=== PATIENT | male | born 1930 | race Caucasian/White ===

== ENCOUNTER 2017-02-20 09:17 | Observation (INO) | payer MEDICARE ==
[~2017-02-20] VITALS: Ht 175.3 cm; Wt 80.3 kg
[~2017-02-20 09:17] MED LIST: ACTONEL35 MG PO; ACYCLOVIR PO; ALENDRONATE SOD70 MG PO; ASPIRIN EC81 MG PO; COREG CR10 MG PO; DEMADEX20 MG PO; FINASTERIDE5 MG PO; FLOMAX0.4 MG PO; GLUCOSAMINE &1 EAC1 PO; LIPITOR40 MG PO; LYRICA50 MG PO; NEXIUM40 MG PO; PLAVIX75 MG PO; [UNRECOGNIZED DRUG - OTHER] PO
[2017-02-20] MEDS ORDERED: MULTI-VITAMIN1 EACH PO (09:44)
[2017-02-20] MEDS ORDERED: MIDODRINE HCL2.5 MG PO (09:44)
[2017-02-20] MEDS ORDERED: OCUVITE SOFTGE1 EACH PO (09:44)
[2017-02-20] MEDS ORDERED: PROPAFENONE HC325 MG PO (09:44)
[2017-02-20] MEDS ORDERED: VALACYCLOVIR500 MG PO (09:44)
[2017-02-20] MEDS ORDERED: PRAVASTATIN SOD40 MG PO (09:44)
[2017-02-20] MEDS ORDERED: HYDROMORPHONE 1MG/1ML INJ IV PRN (10:00)
[2017-02-20] MEDS ORDERED: ONDANSETRON HCL INJ 2 MG/ML VIAL IV PRN (10:00)
[2017-02-20] MEDS: SODIUM CHLORIDE 0.9% 1000ML 1,000 ML IV SCH ×3 (10:26→20:35)
[2017-02-20 10:30] LABS: BASOPHILS % 0.5 % (0.0-1.0); EOSINOPHILS # (AUTO) 0.1 (0.0-0.4); EOSINOPHILS % 1.6 % (0.0-6.0); HEMATOCRIT 34.4 % (38.2-49.6); HEMOGLOBIN 11.6 g/dL (14.0-18.0); LYMPHOCYTES # (AUTO) 0.7 (1.0-3.2); MEAN CORPUSCULAR HEMOGLOBIN 33.1 pg (28-32); MEAN CORPUSCULAR HGB CONC 33.7 g/dL (31-35); MEAN CORPUSCULAR VOLUME 98.3 fL (81-99); MONOCYTES # (AUTO) 0.6 (0.2-0.8); NEUTROPHILS # (AUTO) 2.3 (2.1-6.9); NEUTROPHILS % 62.8 % (38.7-80.0); PLATELET COUNT 106 x10e3/uL (140-360); RED CELL DISTRIBUTION WIDTH 14.3 % (11.7-14.4)
[2017-02-20 10:37] LABS: INR 0.95; PARTIAL THROMBOPLASTIN TIME 23.6 seconds (23.8-35.5); PROTHROMBIN TIME 13.1 seconds (11.9-14.5)
[2017-02-20 10:43] LABS: ALBUMIN 4.2 g/dL (3.5-5.0); ALBUMIN/GLOBULIN RATIO 1.6 (0.8-2.0); ANION GAP 14.7 mmol/L (8-16); CALCIUM 9.5 mg/dL (8.4-10.2); CREATININE, SERUM 1.3 mg/dL (0.72-1.25); POTASSIUM 4.7 mmol/L (3.5-5.1)
--- NOTE | 2017-02-20 11:13 | Diagnostic Imaging Report ---
PROCEDURE: CHEST SINGLE (PORTABLE) COMPARISON: Patients [facility], DX, CHEST SINGLE (PORTABLE), 09/29/2016, 14:56. INDICATIONS: FOOD STUCK IN LUNGS FINDINGS: LUNGS: No consolidations or edema. PLEURA: No effusions or pneumothorax. HEART \T\ MEDIASTINUM: The heart is within normal size-limits. There are sternotomy wires sutures and mediastinal clips. BONES \T\ SOFT TISSUES: No acute findings. CONCLUSION: No acute thoracic abnormality. Te Watson D.O. Dictated by: Te Watson D.O. on 02/20/2017 at 11:21 Electronically approved by: Te Watson D.O. on 02/20/2017 at 11:21
[2017-02-20 15:55] VITALS: BP 186/72
[2017-02-20] MEDS ORDERED: PANTOPRAZOLE 40 MG 10ML VIAL IV STA (16:05)
[2017-02-20] MEDS ORDERED: PANTOPRAZOL 40MG/SOD CHL 0.9% 250 ML IV SCH (16:15)
[2017-02-20 17:02] VITALS: BP 186/72
[2017-02-20] MEDS: PANTOPRAZOL 40MG/SOD CHL 0.9% 50 ML IV SCH ×2 (17:31→20:20)
[2017-02-20] MEDS: METOCLOPRAMIDE HCL 10 MG/2ML VIAL IV SCH ×2 (17:31→23:11)
[2017-02-20 19:00] VITALS: BP 115/56
[2017-02-20] MEDS: PROPAFENONE HCL SR 325 MG CAPCR PO SCH (20:27)
[2017-02-21] VITALS: BP 110/55
--- NOTE | 2017-02-21 01:46 | Pre Op History & Physical ---
CHIEF COMPLAINT: Difficulty swallowing. HISTORY OF PRESENT ILLNESS: This is an 86-year-old male with past medical history of coronary artery disease, status post CABG, hyperlipidemia and history of lymphoma who presents with difficulty swallowing. Patient reports yesterday morning, he was eating part of a muffin and he felt it got stuck in his abdomen. Patient reports, this has happened 4 other times in the past. Patient was unable to dislodge the food and presented to the emergency room. Patient states while in the emergency department, he felt the food "give way" and he felt better. Patient has denied any chest pain, shortness of breath or current abdominal pain. REVIEW OF SYSTEMS GENERAL: Patient denies any fever, recent weight loss or weight gain. Patient does report some weight loss with cancer treatments in the past. HEENT: Patient denies any runny nose, sore throat, vision changes. Patient is hard of hearing. CARDIOVASCULAR: Patient denies any chest pains or palpitations. RESPIRATORY: Patient denies any shortness of breath or cough. GI: Positive for some abdominal pain. : Patient denies any pain with urination. MUSCULOSKELETAL: Patient denies any joint pain or muscle pain. NEURO: Patient denies any headache or focal changes. PSYCH: Patient denies any history of anxiety or depression. PAST MEDICAL HISTORY: Patient has hyperlipidemia, coronary artery disease, history of hypotension and lymphoma. PAST SURGICAL HISTORY: Patient had a CABG 10 years ago. He has also had 3 stents placed, the last being 2 years ago. Patient has also had cataract surgery. FAMILY HISTORY: Noncontributory. SOCIAL HISTORY: Patient is . PHYSICAL EXAMINATION GENERAL: Patient is awake, alert and oriented. No apparent distress. VITALS: Temp 98.5, heart rate 56, respirations 16, blood pressure 115/56, pulse ox 96% on room air. HEENT: Normocephalic, atraumatic. Mucous membranes are moist. Pupils are equally round and reactive to light. EOMs intact. CARDIOVASCULAR: Regular rate and rhythm. No murmurs. RESPIRATORY: Clear to auscultation bilaterally. No wheezing. GI: Abdomen is soft, nontender, nondistended. MUSCULOSKELETAL: Normal inspection. Patient moves all extremities. SKIN: Warm and dry. PSYCH: Normal affect. Normal mood. NEUROLOGIC: Patient is alert and oriented times 4. DIAGNOSTICS: Labs: White count 3.73, hemoglobin 11.6, hematocrit 34.4, platelets 106,000. Chemistry: Creatinine 1.3. Patient had a chest x-ray which was normal. ASSESSMENT AND PLAN 1. Dysphagia: Patient with difficulty swallowing/food getting stuck in his throat and his esophagus. Patient reports this has happened 4 times before. Gastroenterology has been consulted for possible dilation. 2. Coronary artery disease status post coronary artery bypass graft: Continue patient on Plavix and statin. 3. Hyperlipidemia: Continue patient on his home dose of statin. 4. Dysphagia: Patient will be on a clear liquid diet. Reassess swallowing after gastrointestinal workup. 1. History of lymphoma: Patient had chemo recently. He currently gets chemotherapy once a month. Will continue to monitor. Blood count is low but stable. Dictated by: ADIEL Del Cid Job#: [id number]
[2017-02-21] MEDS: PANTOPRAZOL 40MG/SOD CHL 0.9% 50 ML IV SCH ×3 (02:11→12:30)
[2017-02-21] MEDS: SODIUM CHLORIDE 0.9% 1000ML 1,000 ML IV SCH (04:15)
[2017-02-21] MEDS: METOCLOPRAMIDE HCL 10 MG/2ML VIAL IV SCH ×2 (05:31→12:40)
[2017-02-21 05:34] VITALS: BP 108/61
[2017-02-21 06:53] LABS: BASOPHILS % 0.4 % (0.0-1.0); EOSINOPHILS # (AUTO) 0.1 (0.0-0.4); EOSINOPHILS % 3.3 % (0.0-6.0); HEMOGLOBIN 9.7 g/dL (14.0-18.0); LYMPHOCYTES # (AUTO) 0.7 (1.0-3.2); LYMPHOCYTES % 26.3 % (18.0-39.1); MEAN CORPUSCULAR HEMOGLOBIN 32.9 pg (28-32); MEAN CORPUSCULAR HGB CONC 33.4 g/dL (31-35); MEAN CORPUSCULAR VOLUME 98.3 fL (81-99); MONOCYTES # (AUTO) 0.4 (0.2-0.8); MONOCYTES % 15.2 % (4.4-11.3); NEUTROPHILS # (AUTO) 1.4 (2.1-6.9); NEUTROPHILS % 53.3 % (38.7-80.0); PLATELET COUNT 75 x10e3/uL (140-360); RED BLOOD COUNT 2.95 x10e6/uL (4.3-5.7)
[2017-02-21 07:17] LABS: BLOOD UREA NITROGEN 15 mg/dL (7-26); BUN/CREATININE RATIO 14 (6-25); CALCIUM 8.3 mg/dL (8.4-10.2); CARBON DIOXIDE 25 mmol/L (22-29); CHLORIDE 114 mmol/L (98-107); CREATININE, SERUM 1.07 mg/dL (0.72-1.25); EST GLOMERULAR FILTRATION RATE > 60 ML/MIN (60-); GLUCOSE 94 mg/dL (74-118); SODIUM 146 mmol/L (136-145)
[2017-02-21 08:07] VITALS: BP 107/58
[2017-02-21] MEDS ORDERED: MULTIVITAMINS/MINERALS TAB PO SCH (09:00)
[2017-02-21] MEDS ORDERED: PRAVASTATIN 20 MG TAB PO SCH (09:00)
[2017-02-21] MEDS ORDERED: CLOPIDOGREL BISULFATE 75 MG TAB PO SCH (09:00)
[2017-02-21] MEDS ORDERED: NON-FORMULARY MEDICATION (Pravastatin Sodium 40 MG) PO SCH (09:00)
[2017-02-21] MEDS ORDERED: FINASTERIDE 5 MG TAB PO SCH (09:00)
[2017-02-21] MEDS ORDERED: VALACYCLOVIR HCL 500 MG TAB PO SCH (09:00)
[2017-02-21] MEDS: PROPAFENONE HCL SR 325 MG CAPCR PO SCH (09:00)
[2017-02-21] MEDS ORDERED: MIDODRINE 2.5 MG TAB PO SCH (09:00)
[2017-02-21 12:26] VITALS: BP 124/58
--- NOTE | 2017-02-22 10:02 | Discharge Summary ---
ADMITTING DIAGNOSES 1. Dysphagia. 2. Hyperlipidemia. 3. Coronary artery disease. 4 . Hypotension. 5. Lymphoma. DISCHARGE DIAGNOSES 1. Dysphagia has resolved. 2. Hyperlipidemia. 3. Coronary artery disease. 4 . Hypotension. 5. Lymphoma. Patient has a history of hyperlipidemia, CAD, lymphoma, and hypotension, status post CABG 10 years ago with stent placed, the last being about 2 years ago. HOSPITAL COURSE: An 86-year-old male presented with dysphagia when he was eating a muffin. He felt like it got stuck in his throat. He says this happened many times over the last few years, and it usually resolves itself. While in the ER, the patient felt that the food gave way and he felt much better. GI was consulted, and planned for dilation today. Dr. Perez was called when the patient decided he wanted to go home, and said that the patient can do the procedure outpatient. Patient was continued on home medicines, and will follow up with Dr. Perez outpatient. DICTATED BY LYNSEY MENSAH NP LEONCIO ROOT MD Job#: [id number] JOHANN
== END 2017-02-21 13:07 | disposition home or self-care (01) ==
LOC: ER 09:17 → ERHOLD 10:02 → IMCU 14:39
PROVIDERS: ADMIT Internal Medicine; ATTEND Internal Medicine
DX: R13.10 Dysphagia, unspecified (principal); K22.2 Esophageal obstruction; K21.9 Gastro-esophageal reflux disease without esophagitis; E78.5 Hyperlipidemia, unspecified; I95.9 Hypotension, unspecified; K59.00 Constipation, unspecified; C82.90 Follicular lymphoma, unspecified, unspecified site; N18.9 Chronic kidney disease, unspecified; I25.10 Atherosclerotic heart disease of native coronary artery without angina pectoris; D61.818 Other pancytopenia; Z53.29 Procedure and treatment not carried out because of patient's decision for other reasons; Z95.1 Presence of aortocoronary bypass graft; Z95.5 Presence of coronary angioplasty implant and graft; Z79.02 Long term (current) use of antithrombotics/antiplatelets; Z88.1 Allergy status to other antibiotic agents; Z88.5 Allergy status to narcotic agent; Z88.0 Allergy status to penicillin; Z88.2 Allergy status to sulfonamides
CPT/HCPCS: 36415 ×2; 71010; 80048; 80053; 85025 ×2; 85610; 85730; 93005; 94660 ×2; 96366; 99284; G0378 ×2; J2765 ×2; J7030 ×2

== ENCOUNTER → 2019-01-20 | Outpatient (CLI) | payer MEDICARE ==
[~2019-01-20] MED LIST changes: +MIDODRINE HCL2.5 MG PO; +MULTI-VITAMIN1 EACH PO; +OCUVITE SOFTGE1 EACH PO; +PRAVASTATIN SOD40 MG PO; +PROPAFENONE HC325 MG PO; +VALACYCLOVIR500 MG PO
--- NOTE | 2019-01-20 15:29 | Diagnostic Imaging Report ---
EXAM: Renal Ultrasound INDICATION: ^[id number] ^[id number] ^CHRONIC KIDNEY DISEASE STAGE III COMPARISON: None TECHNIQUE: Transverse and longitudinal images of the kidneys and bladder were obtained. FINDINGS: Right Kidney: Length: 10.6 cm Appearance: Increased echogenicity. Collecting system: No hydronephrosis Stones: None Cyst/Mass: Simple cysts measuring up to 2.2 x 1.5 x 2.1 cm. Left Kidney: Length: 10.0 cm Appearance: Increased echogenicity. Collecting system: No hydronephrosis Stones: None Cyst/Mass: Simple cysts measuring up to 2.0 x 1.7 x 2.0 cm at the lower pole. Bladder: No mass or calculi. Bilateral ureteral jets visualized. Prevoid volume estimate of 281.8 cc. Postvoid volume estimate of 45.7 cc. The prostate is enlarged, measuring 6.1 x 4.7 cm with an estimated volume of 70.9 cc. IMPRESSION: Bilaterally echogenic kidneys, consistent with medical renal disease. No hydronephrosis or renal calculi. Bilateral renal cysts as above. Prostatomegaly with estimated prostate volume of 70.9 cc. Signed by: Jacky Salazar MD on 01/20/2019 3:26 PM
== END ==
LOC: US 13:09
PROVIDERS: ATTEND Internal Medicine Nephrology
DX: N18.3 Chronic kidney disease, stage 3 (moderate) (principal)
CPT/HCPCS: 76770; 76857

== ENCOUNTER 2019-10-26 06:01 | Emergency (ER) | payer MEDICARE ==
[~2019-10-26] VITALS: Ht 175.3 cm; Wt 81.6 kg
--- OUTSIDE RECORDS SUMMARY | 2019-10-26 06:27 | XMS REPORT | Clinical Summary ---
Author Author [place] [facility] Address Unknown Phone Unavailable Care Team Providers Care Product Operations Associate Name Role Phone Dale Infante PCP Allergies Comments Active Allergy Reactions Severity Noted Date Ciprofloxacin 07/15/2018 Sulfa (Sulfonamide 07/15/2018 Antibiotics) Medications End Date Status Medication Sig Dispensed Refills Start Date Active lovastatin (MEVACOR) 40 1 BY MOUTH 3 06/17/ 201 MG tablet EVERY DAY 9 Active propafenone (RYTHMOL) 225 TAKE 1/2 A 3 05/09 9/201 MG tablet TABLET BY 9 MOUTH 3 TIMES A DAY Active valACYclovir (VALTREX) Take 500 mg 3 07/11/ 01 500 MG tablet by mouth 9 daily. Active midodrine (PROAMATINE) TAKE ONE (1) 3 06/24/ 01 2.5 MG tablet TABLET(S) BY 9 MOUTH EVERY EVENING. Active clopidogrel (PLAVIX) 75 Take 75 mg by 3 // 201 mg tablet mouth daily. 9 Active finasteride (PROSCAR) 5 Take 5 mg by 3 // 201 mg tablet mouth daily. 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 Never 07/15/2018 How many drinks containing alcohol do you have on No t asked a typical day when you are drinking? How often do you have six or more drinks on one Not asked occasion? Sex Assigned at Date Recorded Not on file Industry Job Start Date Occupation Not on file Not on file Not on file Travel End Travel History Travel Start No recent travel history available. Last Filed Vital Signs Not on file Plan of Treatment Health Maintenance Due Date Last Done Comments SHINGLES VACCINES (#1) 1980 65+ PNEUMOCOCCAL VACCINE 1995 (1 of 2 - PCV13) INFLUENZA VACCINE 11/10/2019 Results Not on fileafter 10/25/2018 Insurance Type Payer Benefit Subscriber ID Effective Phone Address Plan / Dates Group PPO HUMANA MEDICARE HUMANA xxxxxxxxx 2017-P MEDICARE resent PPO/PFFS/E [facility] Advance Directives For more information, please contact: [phone] Patient Conference Services Coordinator Explanation Type Date Recorded Advance Directives, Living Will and Medical Power of Contract Management Specialist
--- OUTSIDE RECORDS SUMMARY | 2019-10-26 06:27 | XMS REPORT | Clinical Summary ---
Author Author [facility] Address Unknown Phone Unavailable Care Team Providers Care Oil Speculator Name Role Phone Levar Infante PCP Allergies Comments Active Allergy Reactions Severity Noted Date Amiodarone Analogues Hives High 5 Hallucinations Morphine Other (See High 12/13/2014 Comments) Penicillins Itching High 12/13/2014 Unknown Quinolones Other (See High 12/13/2014 Comments) Sulfa (Sulfonamide Hives High 12/13/2014 Antibiotics) Medications End Date Status Medication Sig Dispensed Refills Start Date Active clopidogrel (PLAVIX) 75 Take 75 mg by 0 mg tablet mouth daily. Active torsemide (DEMADEX) 20 MG Take 20 mg by 0 tablet mouth daily. Active finasteride (PROSCAR) 5 Take 5 mg by 0 mg tablet mouth daily. Active pravastatin (PRAVACHOL) Take 40 mg by 0 40 MG tablet mouth daily. Active midodrine (PROAMATINE) Take 2.5 mg 0 2.5 MG tablet by mouth 3 (three) times daily. Active valACYclovir (VALTREX) Take 500 mg 0 500 MG tablet by mouth. Active propafenone (RYTHMOL) 225 Take 225 mg 0 MG tablet by mouth 2 (two) times daily. Active multivitamin per tablet Take 1 tablet 0 by mouth daily. Active glucosamine-chondroitin Take 1 tablet 0 500-400 mg tablet by mouth 2 (two) times daily. Active VIT C/VIT Take 1 tablet 0 E/LUTEIN/MIN/OMEGA-3 by mouth 2 (OCUVITE ORAL) (two) times daily. Active Problems Problem Noted Date CAD (coronary artery disease) 09/21/2016 Lymphoma in remission 09/19/2016 Angina at rest 12/15/2014 CAD (coronary artery disease) of artery bypass graft 12/13/2014 Social History Date Tobacco Use Types Packs/Day Years Used Passive Smoke Exposure - Never Smoker Smokeless Tobacco: Never Used Alcohol Use Drinks/Week oz/Week Comments No Sex Assigned at Date Recorded Not on file Industry Job Start Date Occupation Not on file Not on file Not on file Travel End Travel History Travel Start No recent travel history available. Last Filed Vital Signs Not on file Plan of Treatment Not on file Implants Device Identifier Shelf Expiration Date Model / Serial / L ot Implanted Type Area Manufactur er 06/08/2017 [id number] / / [id number] Device Clsr Angio-Seal Vip 6fr Cardiovasc N/A: [employer] [id number] - [id number] ular MED:CARDIA Implanted: Qty: 1 on 09/21/2016 by Siva Rayo MD 03/29/2016 [id number] / / [id number] Promus Premeir [place] Implanted: Qty: 1 on 12/15/2014 SCIENTIFIC Results Not on fileafter 10/25/2018 Insurance Payer Benefit Subscriber ID Type Phone Address Plan / Group HUMANA - MEDICARE MGD HUMANA xxxxxxxxx [facility] MEDICARE Contracted ADV [id number] Advance Directives For more information, please contact: [facility] [address] [place] [id number] Date Inactivated Comments Code Status Date Activated 09/21/2016 7:56 PM Full Code 09/21/2016 12:48 PM This code status was determined by: Patient 09/21/2016 12:48 PM Full Code 09/21/2016 8:09 AM This code status was determined by: Patient 12/15/2014 10:36 PM Full Code 12/15/2014 6:03 PM This code status was determined by: Patient 12/15/2014 6:03 PM Full Code 12/15/2014 12:19 PM This code status was determined by: Patient
--- OUTSIDE RECORDS SUMMARY | 2019-10-26 06:27 | XMS REPORT | Continuity of Care Document ---
Author Author [facility] t Organization [facility] Address [address] [place] [address] Phone Unavailable Care Team Providers Care Architectural Drafter Name Role Phone ISHAN HARDING PCP Unavailable ESMAELI, HANSA Attphys Unavailable ALVIN RENDON Attphys Unavailable JUSTIN DENGIN Attphys Unavailable LEONCIO ROOT Attphys Unavailable Kamille MOREL Attphys Unavailable LEONCIO ROOT Admphys Unavailable Kamille MOREL Admphys Unavailable Payers Payer Name Policy Type Policy Number Effective Date Expiration Date S alec HUMANA CHOICE MEDICARE PPO [id number] 2016 00:00:00 AETNA PPO POS [id number] MEDICARE ADVANTAGE GENERIC [id number] 00:00:00 [employer]ETNA MEDICARE PPO [id number] 2012 00:00:00 00:00:00 Problems Condition Name Condition Details Condition Category Status Onset Date Resolution Date Last Treatment Date Treating Clinician Comments Source 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 00:00 :00 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-07-15 00:00:0 0 Charanjit Hoahaoism Pain of right hip joint Pain of right hip joint Disease Active 2018-07-15 00:00:00 Charanjit flores Trochanteric bursitis of right hip Trochanteric bursitis of righ t hip Disease Active 2018-07-15 00:00:00 Renetta Plascencia 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 2017-10-18 00:00:00 Charanjit Plascencia Acquired thrombocytopenia Acquired thrombocytopenia Disease Ac tive 2017-10-18 00:00:00 Charanjit flores Actinic keratosis Actinic keratosis Disease Active 2017-09-23 00:00:00 Charanjit Plascencia Dyspnea Dyspnea Disease Active 2017-09-23 00:00:00 Charanjit Plascencia CAD (coronary artery disease) CAD (coronary artery disease) Disease Active 2016-09-21 00:00:00 [facility] 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 09-15-11 00:00:00 Charanjit rodriguez Dyslipidemia Dyslipidemia Disease Active 2016-05-16 00:00:00 Charanjit Plascencia 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 Active 09-11-07 00:00:00 Charanjit rodriguez Angina at rest Angina at rest Disease Active 2014-12-15 00:00:00 [facility] CAD (coronary artery disease) of artery bypass graft C AD (coronary artery disease) of artery bypass graft Disease Active 2014-12-13 00:00:00 Charanjit Plascencia Hyperuricemia Hyperuricemia Disease Active 2014-07-12 00:00:00 Charanjit Plascencia Chronic coronary artery disease Chronic coronary artery disease Dis ease Active 2010-07-26 00:00:00 Charanjit Plascencia Lymphadenopathy Lymphadenopathy Disease Active 2010-07-26 00:00:00 Charanjit Plascencia 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-07-26 00:00:00 Charanjit flores Allergies, Adverse Reactions, Alerts Allergy Name Allergy Type Status Severity Reaction(s) Onset Date Inacti ve Date Treating Clinician Comments Source Sulfa (Sulfonamide Antibiotics) DA Active 2019-03-26 00 :00:00 [facility] ciprofloxacin DA Active 2019-03-26 00:00:00 [facility] levofloxacin DA Active 2019-03-26 00:00:00 [facility] penicillin DA Active 2019-03-26 00:00:00 [facility] Ciprofloxacin Propensity to adverse reactions to drug Active 2018-07-15 00:00:00 Charanjit rodriguez Sulfa (Sulfonamide Antibiotics) Propensity to adverse reactions to drug Active 2018-07-15 00:00:00 Renetta juwan Hoahaoism Sulfa (Sulfonamide Antibiotics) DA Active SV 2018-05-07 00 :00:00 [facility] ciprofloxacin DA Active SV 2018-05-07 00:00:00 [facility] levofloxacin DA Active SV 2018-05-07 00:00:00 [facility] penicillin DA Active SV 2018-05-07 00:00:00 [facility] Sulfa (Sulfonamide Antibiotics) DA Active 2015-05-13 00 :00:00 [facility] ciprofloxacin DA Active 2015-05-13 00:00:00 [facility] levofloxacin DA Active 2015-05-13 00:00:00 [facility] penicillin DA Active 2015-05-13 00:00:00 [facility] Amiodarone Analogues Drug Allergy Active Hives 2014-12-13 00:00:0 0 [facility] Morphine Drug Allergy Active Other (See Comments) 2014-12-13 00 :00:00 Hallucinations [facility] Penicillins Drug Allergy Active Itching 2014-12-13 00:00:00 [facility] Quinolones Drug Allergy Active Other (See Comments) 2014-12-13 00:00:00 Unknown [facility] Sulfa (Sulfonamide Antibiotics) Drug Allergy Active Hives 2014-12-13 00:00:00 [facility] Family History Family Member Diagnosis Comments Start Date Stop Date Source Natural brother Heart disease Olivato n Hoahaoism Natural father Cancer [facility] thodist Natural mother Heart disease Don[place]ue Hoahaoism Social History Social Habit Start Date Stop Date Quantity Comments Source History SDOH Alcohol Std Drinks [place] Hoahaoism History SDOH Alcohol Binge [place] Hoahaoism [facility] Hoahaoism Alcohol intake 2018-07-15 00:00:00 2018-07-15 00:00:00 Current non-drinker of alcohol (finding) [place] Hoahaoism History SDOH Alcohol Frequency 2018-07-15 00:00:00 2018-07-15 00:00:0 0 1 Charanjit Hoahaoism Smoking Status Start Date Stop Date Source Never smoker [facility] Methodis t Medications Ordered Medication Name Filled Medication Name Start Date Stop Da te Current Medication? Ordering Clinician Indication Dosage Frequency Signature (SIG) Comments Components Source valACYclovir (VALTREX) 500 MG tablet 2018-07-11 00:00:00 Ye s 500mg QD Take 500 mg by mouth daily. Charanjit Carreon bessyjil midodrine (PROAMATINE) 2.5 MG tablet 2018-06-24 00:00:00 Ye s TAKE ONE (1) TABLET(S) BY MOUTH EVERY EVENING. Don[place] Hoahaoism finasteride (PROSCAR) 5 mg tablet 2018-06-23 00:00:00 Yes 5mg QD Take 5 mg by mouth daily. [place] Hoahaoism clopidogrel (PLAVIX) 75 mg tablet 2018-06-18 00:00:00 Yes 75mg QD Take 75 mg by mouth daily. Charanjit Griggsist lovastatin (MEVACOR) 40 MG tablet 2018-06-17 00:00:00 Yes 1 BY MOUTH EVERY DAY Charanjit Griggsist propafenone (RYTHMOL) 225 MG tablet 2018-05-27 00:00:00 Yes TAKE 1/2 A TABLET BY MOUTH 3 TIMES A DAY Charanjit Griggsist glucosamine-chondroitin 500-400 mg tablet 2016-09-21 09:48:47 Yes 1{tbl} Q.5D Take 1 tablet by mouth 2 (two) times daily. [facility] VIT C/VIT E/LUTEIN/MIN/OMEGA-3 (OCUVITE ORAL) 2016-09-21 09:48:4 7 Yes 1{tbl} Q.5D Take 1 tablet by mouth 2 (two) times daily. [facility] finasteride (PROSCAR) 5 mg tablet 2016-09-21 09:48:46 Yes 5mg QD Take 5 mg by mouth daily. [facility] pravastatin (PRAVACHOL) 40 MG tablet 2016-09-21 09:48:46 Ye s 40mg QD Take 40 mg by mouth daily. [facility] midodrine (PROAMATINE) 2.5 MG tablet 2016-09-21 09:48:46 Yes 2.5mg Q.[id number] Take 2.5 mg by mouth 3 (three) times daily. [facility] valACYclovir (VALTREX) 500 MG tablet 2016-09-21 09:48:46 Ye s 500mg Take 500 mg by mouth. [facility] propafenone (RYTHMOL) 225 MG tablet 2016-09-21 09:48:46 Yes 225mg Q.5D Take 225 mg by mouth 2 (two) times daily. [facility] multivitamin per tablet 2016-09-21 09:48:46 Yes 1{tbl} QD Take 1 tablet by mouth daily. [facility] clopidogrel (PLAVIX) 75 mg tablet 2014-12-15 12:50:39 Yes 75mg QD Take 75 mg by mouth daily. [facility] torsemide (DEMADEX) 20 MG tablet 2014-12-15 12:50:39 Yes 20mg QD Take 20 mg by mouth daily. [facility] Procedures This patient has no known procedures. Plan of Care Planned Activity Planned Date Details Comments Source Future Scheduled Test 2019-11-10 00:00:00 INFLUENZA VACCINE [code = INFLUENZA VACCINE] [facility] Future Scheduled Test 1995 00:00:00 65+ PNEUMOCOCCAL V ACCINE (1 of 2 - PCV13) [code = 65+ PNEUMOCOCCAL VACCINE (1 of 2 - PCV13)] [facility] Scheduled Test 1980 00:00:00 SHINGLES VACCINES (#1) [code = SHINGLES VACCINES (#1)] [facility] Encounters Start Date/Time End Date/Time Encounter Type Admission Type Attendi [facility] Care Department Encounter ID Source 2019-09-08 06:51:14 Outpatient KEISHA MDA 1 [id number] [facility] 2020-01-19 00:00:00 2020-01-19 00:00:00 Outpatient HANSA CORDOVA MDA MDA [id number] [facility] 2019-09-08 08:00:00 2019-09-08 23:59:00 Outpatient HANSA CORDOVA MDA MDA [id number] [facility] 2019-09-08 06:19:33 2019-09-08 06:19:33 Outpatient AVLIN THOMAS MDA, MDA [id number] [facility] Results Test Description Test Time Test Comments Results Result Comments Source GASTRIC,BIOPSY 2019-03-31 15:39:00 RUN DATE: 03/31/[address] PAGE 1 RUN TIME: 1539 Specimen Inquiry RUN USER: INTERFACE PATIENT: MARIZOL ROSARIO LOC: BARBRA U #: [id number] AGE/SX: 89/M ROOM: [facility] RE03/27/19REG DR: Emily Gallego MD : 30 BED: A DIS: 03/27/19 STATUS: DIS Romie TLOC: SPEC #: [id number] RECD: 03/30/19 STATUS: SOUT REQ #: [id number] BRANDON: 03/27/[address] [facility] [address]: Chapo Brewer MD ENTERED: 03/30/19 SP TYPE: GASTRIC BX OTHR DR: No Primary or Family Physician Chapo Brewer MD, Milton E DOORDERED: GROSS COPIES TO: No Primary or Family Physician Chapo Brewer MD [address] [place] [address] [place] [address] PROCEDURES: GROSS (03/31/19-1413) TISSUES: GASTRIC CORPUS - BX CLINICAL HISTORY COLLECTION DATE: 03/27/19 FOOD BOLUS IMPACTION FINAL DIAGNOSIS Gastric biopsy: REACTIVE GASTROPATHY WITH PATCHY MILD CHRONIC INFLAMMATION NO INTESTINAL METAPLASIA SEEN NEGATIVE FOR HELICOBACTER PYLORI BY GIEMSA STAIN NEGATIVE FOR MALIGNANCY [facility]/tayla D [address], [address] CONTINUED ON NEXT PAGE RUN DATE: 03/31/19 [facility] PAGE 2 RUN TIME: 1539 Specimen Inquiry RUN USER: INTERFACE ------ ------SPEC #: [id number] PATIENT: MARIZOL ROSARIO #[id number] (Continued) MACROSCOPIC The specimen is received in formalin, labeled with the patient's name, identified as "gastric biopsy", and consists of gonzalez biopsy material measuring 0.4 cm in aggregate. GROSS PERFORMED AT [facility] [address] [place] [address] (P)[phone] MICROSCOPIC All of the stains, including any controls performed, stain appropriately. MICROSCOPIC PERFORMED AT [facility] [address] [place] [address] (p)[phone] PERFORMING SITE Diagnosis performed at: [facility] [address] [place], [place] [address] Signed SIGNATURE ON FILE Evette Mcgee MD 03/31/19 1539 END OF REPORT - CT NECK W/CONTRAST 2019-03-26 23:53:00 Name: MARIZOL ROSARIO [facility] : 1930 Age/S: 89 / M [address] [place] [address] Unit #: [id number] Loc: [place] [address] Phys: Chong Vences MD Acct: [id number] Dis Date: Status: REG ER PHONE #: [phone] Exam Date: 03/26/2019 5328 FAX #: [phone] Reason: food bolus EXAMS: CPT CODE: [id number] CT NECK W/CONTRAST 76173 HISTORY: Food bolus TECHNIQUE: Axial tomograms and neck were obtained after intravenous contrast. One or more of the following dose reduction techniques were used: Automated exposure control, adjustment of the mA and/or kV according to patient size, and/or utilization of iterative reconstruction technique. Location: C3 FINDINGS: The esophagus is distended and fluid-filled throughout the visualized course. Inferior aspect of the esophagus is not included within the alvce-zo-yrst on this neck evaluation. The parotid glands and submandibular glands are unremarkable. Degenerative changes of the spine are present. Vascular calcifications are present. IMPRESSION: 1. Distended fluid-filled esophagus. Distal obstructing lesion is suspecte d given clinical history of the bolus however the distal esophagus is not visualized. at 2353 Reported and signed by: Jesus Degroot MD CC: hCong Vences MD; Dale Infante Technologist:ISABEL TORO CTDI: DLP: Trnscb Date/Time: 03/26/2019 (2791) [email or web address] Orig Print D/T: S: 03/26/2019 (5475) PAGE 1 Signed Report BASIC METABOLIC PANEL 2019-03-26 23:20:00 Test Item SODIUM (test code = NA) 146 mmol/L 136-145 H POTASSIUM (test code = K) 4.4 mmol/L 3.5-5.1 N CHLORIDE (test code = CL) 112.0 mmol/L 98-107 H CARBON DIOXIDE (test code = CO2) 28.0 mmol/L 21-32 N ANION GAP (test code = GAP) 10.4 10-20 N GLUCOSE (test code = GLU) 153 mg/dL 74-106 H BLOOD UREA NITROGEN (test code = BUN) 36 mg/dL 7-18 H GLOMERULAR FILTRATION RATE (test code = GFR) 41 mL/min >=60 Estimated GFR by using Modified MDRD formula.Chronic kidney disease is defined as either kidney damageor GFR <60 mL/min/1.73 m2 for >3 months. CREATININE (test code = CREAT) 1.60 mg/dL 0.7-1.3 H BUN/CREATININE RATIO (test code = BUN/CREA) 22.5 10-20 H CALCIUM (test code = CA) 9.4 mg/dL 8.5-10.1 N BASIC METABOLIC [id number] 23:17:00* Test Item Value Reference Range Interpretation Comments SODIUM (test code = NA) 146 mmol/L 136-145 H POTASSIUM (test code = K) 4.4 mmol/L 3.5-5.1 N CHLORIDE (test code = CL) 112.0 mmol/L 98-107 H CARBON DIOXIDE (test code = CO2) mmol/L 21-32 ANION GAP (test code = GAP) 10-20 GLUCOSE (test code = GLU) mg/dL 74-106 BLOOD UREA NITROGEN (test code = BUN) mg/dL 7-18 GLOMERULAR FILTRATION RATE (test code = GFR) mL/min >=60 CREATININE (test code = CREAT) mg/dL 0.7-1.3 BUN/CREATININE RATIO (test code = BUN/CREA) 10-20 CALCIUM (test code = CA) mg/dL 8.5-10.1 CBC W/AUTO [id number] 22:58:00* Test Item Value Reference Range Interpretation Comments WHITE BLOOD CELL (test code = WBC) 7.8 K/mm3 4.5-12.5 N RED BLOOD CELL (test code = RBC) 3.98 mill/mm3 4.0-5.8 L HEMOGLOBIN (test code = HGB) 13.0 gram/dL 13.0-17.5 N HEMATOCRIT (test code = HCT) 40.2 % 42.0-52.0 L MEAN CELL VOLUME (test code = MCV) 101.0 fL 80-98 H MEAN CELL HGB (test code = MCH) 32.7 picogram 27.0-33.0 N MEAN CELL HGB CONCETRATION (test code = MCHC) 32.3 gram/dL 33.0-36. 0 L RED CELL DISTRIBUTION WIDTH (test code = RDW) 12.6 % 11.6-16. 2 N RED CELL DISTRIBUTION WIDTH SD (test code = RDW-SD) 46.6 fL 37 .0-51.0 N PLATELET COUNT (test code = PLT) 116 K/mm3 150-450 L MEAN PLATELET VOLUME (test code = MPV) 9.3 fL 6.7-11.0 N NEUTROPHIL % (test code = NT%) 76.8 % 39.0-69.0 H IMMATURE GRANULOCYTE % (test code = IG%) 0.4 % 0.0-5.0 N LYMPHOCYTE % (test code = LY%) 15.7 % 25.0-55.0 L MONOCYTE % (test code = MO%) 5.9 % 0.0-10.0 N EOSINOPHIL % (test code = EO%) 0.8 % 0.0-5.0 N BASOPHIL % (test code = BA%) 0.4 % 0.0-1.0 N NUCLEATED RBC % (test code = NRBC%) 0.0 % 0-0 N NEUTROPHIL # (test code = NT#) 5.99 K/mm3 1.8-7.7 N IMMATURE GRANULOCYTE # (test code = IG#) 0.03 x10 3/uL 0-0.03 N LYMPHOCYTE # (test code = LY#) 1.22 K/mm3 1.0-5.0 N MONOCYTE # (test code = MO#) 0.46 K/mm3 0-0.8 N EOSINOPHIL # (test code = EO#) 0.06 K/mm3 0.0-0.5 N BASOPHIL # (test code = BA#) 0.03 K/mm3 0.0-0.2 N NUCLEATED RBC # (test code = NRBC#) 0.00 K/mm3 0.0-0.1 N - XR NECK SOFT [id number] 22:36:00 FAX: Chong Vences MD [phone] [place]: St: PRE FAX: Dale Valverde [phone] Name: MARIZOL ROSARIO [facility] : 1930 Age/S: 89/M [address] [facility] Unit #: [id number] Loc: [facility] [place]I [address] Phys: Chong Vences MD Acct: [id number] Dis Date: Status: PRE ER PHONE #: [phone] Exam Date: 03/26/20192214 FAX #: [phone] Reason: food bolus EXAMS: CPT CODE: [id number] XR NECK SOFT TISSUE 17444 EXAM: Soft tissues of the neck, 2 views; INFORMATION: Food bolus; need stuck in throat; IMPRESSION: 1. Upper airways are patent; no evidence of a foreign body. 2. Nasal and oroph arynx are also unremarkable. 3. No radiopaque foreign body is seen in th e cervical esophagus. 4. 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 Location code: [facility] at 2236 Reported and signed by: Sid Hart M.D. CC: Chong Bruno MD; Dale Infante Technologist: OSBALDO CURRY Trnscrd Date/Time/By: 03/26/2019 (2235) : By: BlairGRW Orig Print D/T: S: 03/26/2019 (2238) PAGE 1 Signed Report RENAL RETROPERITONEAL [id number] 15:22:00 [place] [address] Patient Name: MARIZOL ROSARIO MR #: [id number] : 1930 Age/Sex: 88/M Req #: [id number] Adm Physician: Ordered by: LEONIE DENG MD Report #: [id number] Location: Room/Bed: Procedure: [id number] US/U S RENAL RETROPERITONEAL COMP Exam Date: 01/20/19 Exa m Time: 1332 REPORT STATUS: Signed EXAM: Renal Ultrasound INDICATION: [id number] CHRONIC K IDNEY DISEASE STAGE III COMPARISON: None TECHNIQUE: Transverse and longit udinal images of the kidneys and bladder were obtained. FINDINGS: Right Kidney: Length: 10.6 cm Appearance: Increased echogenicity. Collecting system: No hydronephrosis Stones: None Cyst/Mass: Simple cysts me asuring up to 2.2 x 1.5 x 2.1 cm. Left Kidney: Length: 10.0 cm Appeara nce: Increased echogenicity. Collecting system: No hydronephrosis Stones: None Cyst/Mass: Simple cysts measuring up to 2.0 x 1.7 x 2.0 cm at the lower p ole. Bladder: No mass or calculi. Bilateral ureteral jets visualized. Pr evoid volume estimate of 281.8 cc. Postvoid volume estimate of 45.7 cc. T he prostate is enlarged, measuring 6.1 x 4.7 cm with an estimated volume of 70 .9 cc. IMPRESSION: Bilaterally echogenic kidneys, consistent with medical renal disease. No hydronephrosis or renal calculi. Bilateral renal cy sts as above. Prostatomegaly with estimated prostate volume of 70.9 cc. Signed by: Frank Sethi MD on 01/20/2019 3:26 PM Dictated By: FRANK SETHI MD 1526 Transcribed By: Carly HAMLIN on 01/20/19 1526 COPY TO: LEONIE DENG MD US PELVIC (NON OB) COURTNEY OR [id number] 15:22:00 [place] [address] Patient Name: MARIZOL ROSARIO MR #: [id number] : 1930 Age/Sex: 88/M Req #: [id number] Adm Physician: Ordered by: LEONIE DENG MD Report #: [id number] Location: US Room/Bed: Procedure: [id number] US/U S PELVIC (NON OB) COURTNEY OR F/U Exam Date: 01/20/19 Exa m Time: 1333 REPORT STATUS: Signed EXAM: Renal Ultrasound INDICATION: [id number] CHRONIC K IDNEY DISEASE STAGE III COMPARISON: None TECHNIQUE: Transverse and longit udinal images of the kidneys and bladder were obtained. FINDINGS: Right Kidney: Length: 10.6 cm Appearance: Increased echogenicity. Collecting system: No hydronephrosis Stones: None Cyst/Mass: Simple cysts me asuring up to 2.2 x 1.5 x 2.1 cm. Left Kidney: Length: 10.0 cm Appeara nce: Increased echogenicity. Collecting system: No hydronephrosis Stones: None Cyst/Mass: Simple cysts measuring up to 2.0 x 1.7 x 2.0 cm at the lower p ole. Bladder: No mass or calculi. Bilateral ureteral jets visualized. Pr evoid volume estimate of 281.8 cc. Postvoid volume estimate of 45.7 cc. T he prostate is enlarged, measuring 6.1 x 4.7 cm with an estimated volume of 70 .9 cc. IMPRESSION: Bilaterally echogenic kidneys, consistent with medical renal disease. No hydronephrosis or renal calculi. Bilateral renal cy sts as above. Prostatomegaly with estimated prostate volume of 70.9 cc. Signed by: Frank Sethi MD on 01/20/2019 3:26 PM Dictated By: FRANK SETHI MD 1526 Transcribed By: Carly HAMLIN on 01/20/19 1526 COPY TO: LEONIE DENG MD - CT HEAD/BRAIN W/O [id number] 21:34:00 Name: MARIZOL ROSARIO [facility] : 1930 Age/S: 88 / M [address] [facility] Unit #: [id number] Loc: [place] [address] Phys: Morena Kam MD Acct: [id number] Dis Date: Status: REG ER PHONE #: [phone] Exam Date: 05/07/20182055 FAX #: [phone] Reason: fall today, closed head injury, on Plavix EXAMS: CPT CODE: [id number] CT HEAD/BRAIN W/O CONT 83965 HISTORY: fall today, closed head injury, on Plavix TECHNIQUE: Noncontrast 2.[address] of the head. Examination acquired within 24 hours of arrival. Automated exposure control for dose reduction. COMPARISON: Noncontrast CT brain October 23, 2009 FINDINGS: No acute hemorrhage. No intracranial mass, mass effect, or midline shift. No CT evidence of acute infarct. Lee-white matter differentiation is preserved. No hydrocephalus. No extra-axial fluid collection. There is mild atrophy of the cerebral cortex. There is mucosal thickening in the sphenoid sinuses. The remaining Visualized paranasal sinuses are clear. Mastoid air cells and middle ear cavities are clear. Prior lens extraction bilaterally. Calvarium and skull base are intact. Atherosclerotic disease is present in the vertebral arteries. IMPRESSION: No acute intracranial process. Specifically no intracranial hemorrhage or mass effect. Mild cortical atrophy involving the cerebrum. at 2134 Reported and signed by: Saul Grajeda MD CC: Morena Kam MD; Benjamin Pimentel Technologist:FIONA RAMIREZ RT(R),CT CTDI: DLP: Trnscb Date/Time: 05/07/2018 (2133) [email or web address].SDR.RR31 Orig Print D/T: S: 05/07/2018 (2136) CTDI: DLP: PAGE 1 Signed Report - XR RIBS UNI W/CXR 3+V [id number] 21:30:00 Name: MARIZOL ROSARIO [facility] : 1930 Age/S:88 /M [address] [facility] Unit#:[id number] Loc: [place] [address] Phys: Morena Kam MD Dis Date: PHONE #: [phone] Status: REG ER FAX #: [phone] Exam Date: 05/07/2018 Reason: fall today, right rib pain EXAMS: CPT CODE: [id number] XR RIBS UNI W/CXR 3+[place] [address] CLINICAL HISTORY: fall today, right rib pain TECHNIQUE: AP and oblique views of the right ribs. COMPARISON: AP chest x-ray September 25, 2016 FINDINGS: No acute right- sided rib fracture is identified. Visualized portions of the contralateral ribs also appear intact. Visualized thoracolumbar spine is unremarkable. No pneumothorax. There is mild subsegmental atelectasis in the lung bases. Degenerative changes are present in the spine. IMPRESSION: No displaced rib fractures are identified in the right hemithorax. at 2130 Reported and signed by: Saul Grajeda MD CC: Morena Kam MD; Benjamin Pimentel Technologist: FIONA RAMIREZ RT(R),CT Trnscrpt Data: 05/07/2018 (2129) [email or web address] Orig Print D/T: S: 05/07/2018 (2132) PAGE 1 Signed Report CBC W/PLT COUNT & AUTO DIFFERENTIAL 2016-09-21 15:37:00* Test Item Value Reference Range Interpretation Comments WHITE BLOOD CELL COUNT (BEAKER) (test code = 775) 2.6 K/ L 4.0- 10.0 L RED BLOOD CELL COUNT (BEAKER) (test code = 761) 3.10 M/ L 4.20-5 .80 L HEMOGLOBIN (BEAKER) (test code = 410) 11.5 GM/DL 13.0-16.8 L HEMATOCRIT (BEAKER) (test code = 411) 31.4 % 40.0-50.0 L MEAN CORPUSCULAR VOLUME (BEAKER) (test code = 753) 101.0 fL 82. 0-98.0 H MEAN CORPUSCULAR HEMOGLOBIN (BEAKER) (test code = 751) 36.9 pg 27.0-33.0 H MEAN CORPUSCULAR HEMOGLOBIN CONC (BEAKER) (test code = 752) 36.5 GM/DL 32.0-36.0 H RED CELL DISTRIBUTION WIDTH (BEAKER) (test code = 412) 15.5 % 10.3-14.2 H PLATELET COUNT (BEAKER) (test code = 756) 76 K/CU MM 150-430 L MEAN PLATELET VOLUME (BEAKER) (test code = 754) 7.7 fL 6.5-10 .5 NUCLEATED RED BLOOD CELLS (BEAKER) (test code = 413) 0 /100 WBC 0 -0 NEUTROPHILS RELATIVE PERCENT (BEAKER) (test code = 429) 49 % LYMPHOCYTES RELATIVE PERCENT (BEAKER) (test code = 430) 26 % MONOCYTES RELATIVE PERCENT (BEAKER) (test code = 431) 22 % EOSINOPHILS RELATIVE PERCENT (BEAKER) (test code = 432) 3 % BASOPHILS RELATIVE PERCENT (BEAKER) (test code = 437) 1 % NEUTROPHILS ABSOLUTE COUNT (BEAKER) (test code = 670) 1.24 K/ L 1.80-8.00 L LYMPHOCYTES ABSOLUTE COUNT (BEAKER) (test code = 414) 0.67 K/ L 1.48-4.50 L MONOCYTES ABSOLUTE COUNT (BEAKER) (test code = 415) 0.56 K/ L 0. 00-1.30 EOSINOPHILS ABSOLUTE COUNT (BEAKER) (test code = 416) 0.07 K/ L 0.00-0.50 BASOPHILS ABSOLUTE COUNT (BEAKER) (test code = 417) 0.02 K/ L 0. 00-0.20 0.000.760.000.000.000.000.000.00(MANUAL DIFFERENTIAL)2016-09-21 15:37:00* Test Item Value Reference Range Interpretation Comments TOTAL COUNTED (BEAKER) (test code = 1351) WBC MORPHOLOGY (BEAKER) (test code = 487) Normal PLT MORPHOLOGY (BEAKER) (test code = 486) Normal RBC MORPHOLOGY (BEAKER) (test code = 762) Normal BASIC METABOLIC [id number] 09:59:00* Test Item Value Reference Range Interpretation Comments SODIUM (BEAKER) (test code = 381) 140 meq/L 136-145 POTASSIUM (BEAKER) (test code = 379) 4.8 meq/L 3.5-5.1 CHLORIDE (BEAKER) (test code = 382) 107 meq/L 98-107 CO2 (BEAKER) (test code = 355) 26 meq/L 22-29 BLOOD UREA NITROGEN (BEAKER) (test code = 354) 22 mg/dL 7-21 H CREATININE (BEAKER) (test code = 358) 1.44 mg/dL 0.57-1.25 H GLUCOSE RANDOM (BEAKER) (test code = 652) 94 mg/dL 70-105 CALCIUM (BEAKER) (test code = 697) 9.4 mg/dL 8.4-10.2 EGFR (BEAKER) (test code = 1092) 47 mL/min/1.73 sq m INSUFFICIENT CLINICAL DATA TO CALCULATE ESTIMATED GFR. CHEST SINGLE (PORTABLE) [facility] [address] [address] Patient Name: MARIZOL ROSARIO MR #: [id number] : 1930 Age/Sex: 86/M Req #: [id number] Adm Physician: LEONCIO ROOT MD Ordered by: JOHN RENEE MD Report #: [id number] Location: [facility] Room/Bed: [place] [address] Procedure: [id number] DX/ EST SINGLE (PORTABLE) Exam Date: 02/20/17 Exam Time: 1010 REPORT STATUS: Signed PROCEDURE: CHEST SINGLE (PORTABLE) COMPAR ISIDRO: [facility], DX, CHEST SINGLE (PORTABLE), 09/29/2016, 14:56. INDICATIONS: FOOD STUCK IN LUNGS FINDINGS: LUNGS: No consolidat ions or edema. PLEURA: No effusions or pneumothorax. HEART T MEDIASTINUM: The heart is within normal size-limits. There are sternotomy wi res sutures and mediastinal clips. BONES T SOFT TISSUES: No acute fin dings. CONCLUSION: No acute thoracic abnormality. Te Bird D.O. Dictated by: Te Bird D.O. on 02/20/2017 at 11:21 Electronically approved by: Te Bird D.O. on 02/20/2017 at 11:21 Dictated By: TE BIRD DO 1121 Transcribed By: ROMAIN on 02/20/17 1121 COPY TO: JOHN RENEE MD
[2019-10-26] MEDS ORDERED: LOVASTATIN40 MG PO (06:29)
--- NOTE | 2019-10-26 06:33 | Emergency Department Note ---
History of Present Illnes History of Present Illness Chief Complaint: Head/Face Trauma History of Present Illness This is a 89 year old male Patient states he tripped and fell over a box approx one hour ago. Patient has abrasion to right knee and left hardy area. Patient also states he believes he hit his head. No distress noted at this time. RR even and unlabored. Patient is on blood thinners. No LOC. Historian: Patient Arrival Mode: Car Camp Advisor Required: No Onset (how long ago): hour(s) Location: head Quality: contusion with mild pain Radiation: Reports non-radiation Severity: mild Onset quality: sudden Chronicity: new Context: Denies recent illness Relieving factors: none Exacerbating factors: none Associated symptoms: Reports denies other symptoms Treatments prior to arrival: none Past Medical/Family History Physician Review I have reviewed the patient's past medical and family history. Any updates have been documented here. 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 Social History Smoking Cessation: Unknown if ever smoked Counseling Performed: No Alcohol Use: None Any Illegal Drug Use: No TB Exposure/Symptoms: No Physically hurt or threatened: No Family History Family history of heart diseas: No Other Last Tetanus: Unknown Any Pre-Existing Lines (PICC,: No Review of Systems Review of Systems Constitutional: Reports no symptoms EENTM: Reports no symptoms Cardiovascular: Reports no symptoms Respiratory: Reports no symptoms Gastrointestinal: Reports no symptoms Genitourinary: Reports no symptoms Musculoskeletal: Reports as per HPI Integumentary: Reports no symptoms Neurological: Reports no symptoms Psychological: Reports no symptoms Endocrine: Reports no symptoms Hematological/Lymphatic: Reports no symptoms Physical Exam Related Data Allergies: Coded Allergies: Penicillins (Verified Allergy, Mild, 02/20/17) Sulfa (Sulfonamide Antibiotics) (Verified Allergy, Mild, 02/20/17) ciprofloxacin (Verified Allergy, Unknown, 02/20/17) levofloxacin (Verified Allergy, Unknown, 02/20/17) morphine (Verified Allergy, Unknown, hallucination , 02/20/17) Uncoded Allergies: MYCIN DRUGS (Allergy, Mild, 11/26/09) Triage Vital Signs Vital Signs Date Time Temp Pulse Resp B/P (MAP) Pulse Ox O2 Delivery O2 Flow Rate FiO2 10/26/19 06:07 98.1 75 20 180/87 99 Room Air Vital signs reviewed: Yes Physical Exam CONSTITUTIONAL Constitutional: Present well-developed, Present well-nourished HENT HENT: Present normocephalic, Present atraumatic, Present oropharynx clear/moist, Present oropharynx normal, Present nose normal, Present other (small area right temporal scalp that he points to, mild tenderness, no hematoma that I could feel) HENT L/R: Present left ext ear normal, Present right ext ear normal EYES Eyes: Reports PERRL, Reports conjunctivae normal NECK Neck: Present ROM normal PULMONARY Pulmonary: Present effort normal, Present breath sounds normal CARDIOVASCULAR Cardiovascular: Present regular rhythm, Present heart sounds normal, Present capillary refill normal, Present normal rate GASTROINTESTINAL Abdominal: Present soft, Present nontender, Present bowel sounds normal GENITOURINARY Genitourinary: Present exam deferred SKIN Skin: Present warm, Present dry, Present other (small abrasion to right knee and left anterior tibia area) MUSCULOSKELETAL Musculoskeletal: Present ROM normal, Present other (pelvis stable, no bony pain) NEUROLOGICAL Neurological: Present alert, Present oriented x 3, Present no gross motor or sensory deficits PSYCHOLOGICAL Psychological: Present mood/affect normal, Present judgement normal Results Imaging Imaging results reviewed: Yes Impressions CT BRAIN WO HISTORY: Trauma COMPARISON: Head CT 09/29/2016 Technique: Noncontrast axial scans were obtained from skull base to the vertex. Coronal and sagittal reconstructions obtained from the axial data. One or more of the following dose reduction techniques were used: Automated exposure control, adjustment of the mA and/or kV according to patient size, and/or utilization of iterative reconstruction technique. Beam hardening artifacts obscure some details. DISCUSSION: Scalp/Skull: Unremarkable. Brain sulci: Mildly prominent. Ventricles: Compensatory dilatation. Extra-axial spaces: No masses or fluid collections. Carotid and vertebral artery calcifications are present. Parenchyma: Mild bilateral deep white matter hypodensity is likely chronic microvascular ischemic change. Otherwise, no masses, hemorrhage, or large vascular territory acute infarct. Dural sinuses: No abnormal densities. Sellar/Suprasellar region: Intact. Skull base: Intact. Incidental findings: Partial left sphenoid sinus opacification is nonspecific. Bilateral ocular lens replacement. IMPRESSION: 1. No acute intracranial abnormalities. 2. Mild supratentorial chronic microvascular ischemic change. Mild generalized cerebral volume loss. CT CERVICAL SPINE WO HISTORY: Trauma COMPARISON: None. TECHNIQUE: CT of the cervical spine without contrast. Sagittal and coronal reformations were created. One or more of the following dose reduction techniques were used: Automated exposure control, adjustment of the mA and/or kV according to patient size, and/or utilization of iterative reconstruction technique. FINDINGS: Mild bone demineralization limits evaluation. Cervical lordosis is preserved. There is no scoliosis or subluxation. Partially imaged mild T1 vertebral compression deformity is age indeterminate; there is no significant retropulsion. No definite additional acute fracture or compression deformity is seen. The craniocervical junction is intact. No gross spinal canal masses are seen. The paravertebral and paraspinal soft tissues are unremarkable. Degenerative changes: Mild multilevel spondylotic changes are present. Prominent multilevel facet arthrosis is present, left greater than right. Advanced atlantoaxial arthrosis is also seen. Additional findings: There is mild scarring in the lung apices. Moderate bilateral carotid bulb calcified plaque is present, right greater than left. IMPRESSION: 1. Partially imaged, age indeterminate mild T1 vertebral compression fracture without significant retropulsion. 2. No other acute osseous abnormalities. 3. Degenerative changes as described above. Signed by: Dr. Yair Fu M.D. on 10/26/2019 7:28 AM Assessment & Plan Medical Decision Making MDM mechanical fall, tripped over a box, hit head without LOC but on anticoagulants, small abrasions on LE's, no bony pain - check CT brain and c-spine Reassessment Reassessment dc home, tylenol as directed, F/U PCP, Head sheet precautions Assessment & Plan Final Impression: (1) Fall (2) Abrasion (3) Scalp contusion Depart Disposition: HOME, SELF-CARE Last Vital Signs Date Time Temp Pulse Resp B/P (MAP) Pulse Ox O2 Delivery O2 Flow Rate FiO2 10/26/19 06:07 98.1 75 20 180/87 99 Room Air Home Meds Reported Medications Lovastatin (LOVASTATIN) 40 Mg Tablet, 40 MG PO DAILY THERAPEUTICALLY SUBSTITUTED WITH SIMVASTATIN 20MG 10/26/19 Propafenone Hcl (PROPAFENONE HCL) 325 Mg Cap.er.12h, 162.5 MG PO TID, CAP 02/20/17 Midodrine Hcl (MIDODRINE HCL) 2.5 Mg Tablet, 2.5 MG PO DAILY, TAB 02/20/17 Vit C/Vit E/Lutein/Min/[place]-3 (OCUVITE SOFTGEL) 1 Each Capsule, 1 CAP PO DAILY 02/20/17 Valacyclovir Hcl (VALACYCLOVIR) 500 Mg Tablet, 500 MG PO DAILY, #30 TAB 02/20/17 Gluc 2KCL/Chondr/Mi Hy/Hy Ac (GLUCOSAMINE & CHONDROITIN CAP) 1 Each Capsule, 1 TAB PO 09/29/16 Clopidogrel Bisulfate* (PLAVIX) 75 Mg Tablet, 75 MG PO DAILY 11/06/12 Finasteride (FINASTERIDE) 5 Mg Tablet, 5 MG PO DAILY 11/06/12 Discontinued Reported Medications Multivitamin (MULTI-VITAMIN DAILY) 1 Each Tablet, 1 TAB PO DAILY 02/20/17 Pravastatin Sodium (PRAVASTATIN SODIUM) 40 Mg Tablet, 40 MG PO DAILY 02/20/17 ELINOR GUALLPA MD Oct 26, 2019 06:33
--- NOTE | 2019-10-26 06:52 | NUR ---
Report to GIN Lee
--- NOTE | 2019-10-26 07:25 | Diagnostic Imaging Report ---
CT BRAIN WO HISTORY: Trauma COMPARISON: Head CT 09/29/2016 Technique: Noncontrast axial scans were obtained from skull base to the vertex. Coronal and sagittal reconstructions obtained from the axial data. One or more of the following dose reduction techniques were used: Automated exposure control, adjustment of the mA and/or kV according to patient size, and/or utilization of iterative reconstruction technique. Beam hardening artifacts obscure some details. DISCUSSION: Scalp/Skull: Unremarkable. Brain sulci: Mildly prominent. Ventricles: Compensatory dilatation. Extra-axial spaces: No masses or fluid collections. Carotid and vertebral artery calcifications are present. Parenchyma: Mild bilateral deep white matter hypodensity is likely chronic microvascular ischemic change. Otherwise, no masses, hemorrhage, or large vascular territory acute infarct. Dural sinuses: No abnormal densities. Sellar/Suprasellar region: Intact. Skull base: Intact. Incidental findings: Partial left sphenoid sinus opacification is nonspecific. Bilateral ocular lens replacement. IMPRESSION: 1. No acute intracranial abnormalities. 2. Mild supratentorial chronic microvascular ischemic change. Mild generalized cerebral volume loss. Signed by: Dr. Yair Fu M.D. on 10/26/2019 7:22 AM
--- NOTE | 2019-10-26 07:32 | Diagnostic Imaging Report ---
CT CERVICAL SPINE WO HISTORY: Trauma COMPARISON: None. TECHNIQUE: CT of the cervical spine without contrast. Sagittal and coronal reformations were created. One or more of the following dose reduction techniques were used: Automated exposure control, adjustment of the mA and/or kV according to patient size, and/or utilization of iterative reconstruction technique. FINDINGS: Mild bone demineralization limits evaluation. Cervical lordosis is preserved. There is no scoliosis or subluxation. Partially imaged mild T1 vertebral compression deformity is age indeterminate; there is no significant retropulsion. No definite additional acute fracture or compression deformity is seen. The craniocervical junction is intact. No gross spinal canal masses are seen. The paravertebral and paraspinal soft tissues are unremarkable. Degenerative changes: Mild multilevel spondylotic changes are present. Prominent multilevel facet arthrosis is present, left greater than right. Advanced atlantoaxial arthrosis is also seen. Additional findings: There is mild scarring in the lung apices. Moderate bilateral carotid bulb calcified plaque is present, right greater than left. IMPRESSION: 1. Partially imaged, age indeterminate mild T1 vertebral compression fracture without significant retropulsion. 2. No other acute osseous abnormalities. 3. Degenerative changes as described above. Signed by: Dr. Yair Fu M.D. on 10/26/2019 7:28 AM
[2019-10-26] MEDS ORDERED: TETANUS/DIPHTHERIA TOX ADULT 0.5 ML SYR IM ONE (07:45)
== END 2019-10-26 07:54 | disposition home or self-care (01) ==
LOC: ER 06:16
DX: S00.03XA Contusion of scalp, initial encounter (principal); S80.211A Abrasion, right knee, initial encounter; S80.812A Abrasion, left lower leg, initial encounter; W01.0XXA Fall on same level from slipping, tripping and stumbling without subsequent striking against object, initial encounter; I48.91 Unspecified atrial fibrillation; I25.10 Atherosclerotic heart disease of native coronary artery without angina pectoris; E78.5 Hyperlipidemia, unspecified; Z79.01 Long term (current) use of anticoagulants; Z95.1 Presence of aortocoronary bypass graft; Z85.72 Personal history of non-Hodgkin lymphomas
CPT/HCPCS: 70450; 72125; 90471; 90714; 99283